=== PATIENT | male | born 1965 | race Caucasian/White ===

== ENCOUNTER 2017-01-18 11:00 | Emergency (ER) | payer SELFPAY ==
[2017-01-18 11:21] VITALS: TEMP 96.4
--- NOTE | 2017-01-18 12:12 | RAD ---
EXAM DESCRIPTION: Cervical Spine,5 Views CLINICAL HISTORY: inability to extend wrist and fingers this am COMPARISON: None FINDINGS: 6 views of the cervical spine. Cervical lordosis is maintained. Precervical soft tissues are normal in appearance. No acute fracture the cervical spine is demonstrated. No locked or perched facets. Disc heights are relatively maintained. No significant facet joint hypertrophy or uncinate spurring is demonstrated. No significant osseous foraminal crowding. C1-C2 articulations are maintained. Carotid artery calcific atherosclerotic disease is present. IMPRESSION: Negative for acute osseous pathology. Electronically signed by: Levy Simeon MD 01/18/2017 12:11 PM CDT
--- NOTE | 2017-01-18 12:13 | RAD ---
EXAM DESCRIPTION: Elbow,Right 3 Views CLINICAL HISTORY: inability to extend wrist and fingers this am COMPARISON: None FINDINGS: 3 views of the right elbow. No fracture, dislocation or aggressive bone lesion is present. Bone mineralization is normal. No erosions are seen. Prominence of the soft tissues dorsal to the olecranon. IMPRESSION: Olecranon bursitis suspected. Negative for acute osseous pathology. Electronically signed by: Levy Simeon MD 01/18/2017 12:12 PM CDT
[2017-01-18] MEDS ORDERED: predniSONE 20 MG TAB PO ONE (12:29)
--- NOTE | 2017-01-18 12:32 | ED.PDOC ---
History of Present Illness - General Chief Complaint: Lower Extremity Injury Stated Complaint: right wrist numbness/tingling Time Seen by Provider: 01/18/17 11:01 Source: patient Exam Limitations: no limitations - History of Present Illness Initial Comments: The patient is a 51-year-old male presenting to the emergency room secondary to waking up this morning and having the inability to extend his wrist or his fingers on his right hand. He reports that he did sleep on the couch last night. He had 1-2 beers last night only. He did not take any sleeping medications. He does not think that he woke up with his arm in any unusual position. Of note yesterday he did hit the lower posterior lateral aspect of his upper arm on the right on a car door yesterday evening. He does have an abrasion and obvious swelling over that area. He has tingling over the dorsal aspect of his right forearm extending down to the mid hand. Strength of the biceps triceps and brachial radialis muscles are preserved. Flexors of the wrist are preserved. Abduction and abduction of the fingers appear to be preserved. General motion of the right thumb also appears to be preserved. Sensation of the fingertips and the palmar aspect of the fingers appear to be preserved. strength and range of motion surrounding the elbow and shoulder appear to be preserved. There are no sensory changesabove the level of the elbow. Timing/Duration: 4-6 hours Severity: severe Improving Factors: nothing Worsening Factors: nothing Associated Symptoms: denies symptoms Allergies/Adverse Reactions: Allergies Alprazolam [From Xanax] Allergy (Verified 01/18/17 11:21) Carisoprodol [From Soma] Allergy (Verified 01/18/17 11:21) Home Medications: Ambulatory Orders predniSONE [Prednisone] 20 mg PO DAILY #7 tab 01/18/17 Review of Systems - Review of Systems Constitutional: States: no symptoms reported EENTM: States: no symptoms reported Respiratory: States: no symptoms reported Cardiology: States: no symptoms reported Gastrointestinal/Abdominal: States: no symptoms reported Genitourinary: States: no symptoms reported Musculoskeletal: States: see HPI Skin: States: see HPI Neurological: States: see HPI Endocrine: States: no symptoms reported Hematologic/Lymphatic: States: no symptoms reported All other Systems: No Change from Baseline Past Medical History (General) - Patient Medical History Hx Congestive Heart Failure: No Hx Hypertension: Yes Hx Diabetes: No Surgical History: appendectomy - Vaccination History Hx Influenza Vaccination: No - Social History Hx Tobacco Use: Yes Hx Substance Use: Yes - admits to smoking pot Family Medical History - Family History Father Family History: Unknown Living Status: Unknown Physical Exam - Physical Exam General Appearance: Alert, Comfortable, No apparent distress Eye Exam: bilateral normal Ears, Nose, Throat: hearing grossly normal, normal ENT inspection, normal pharynx Neck: full range of motion, supple, normal inspection Respiratory: no respiratory distress, no accessory muscle use Cardiovascular/Chest: normal peripheral pulses, no edema Peripheral Pulses: radial,right: 2+, radial,left: 2+, dorsalis pedis,right: 2+, dorsalis pedis,left: 2+ Gastrointestinal/Abdominal: non tender, soft Rectal Exam: deferred Back Exam: normal inspection, no CVA tenderness, no vertebral tenderness Extremity: normal range of motion, non-tender, no pedal edema, no calf tenderness, normal capillary refill, other - ee history of present illness 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 the source of this is most likely blunt trauma from accidental contact with a car door to his posterior lower upper arm yesterday evening. X-rays of the cervical spine and elbow were fairly reassuring. The patient will be placed on prednisone 20 mg daily for the next week. He is being placed in a wrist splint. If he is not seeing some improvement over the next 48 hours then he should get set up with a neurologist for a nerve conduction test of the right upper extremity, to localize the source of the problem and intervene surgically if it might prove beneficial. ER warnings were given. The patient does understand that this can be a permanent problem. He does need to do range of motion exercises with the wrist and the hand to prevent contractures and further weakness. 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 the source of this is most likely blunt trauma from accidental contact with a car door to his posterior lower upper arm yesterday evening. X-rays of the cervical spine and elbow were fairly reassuring. The patient will be placed on prednisone 20 mg daily for the next week. He is being placed in a wrist splint. If he is not seeing some improvement over the next 48 hours then he should get set up with a neurologist for a nerve conduction test of the right upper extremity, to localize the source of the problem and intervene surgically if it might prove beneficial. ER warnings were given. The patient does understand that this can be a permanent problem. He does need to do range of motion exercises with the wrist and the hand to prevent contractures and further weakness.
[2017-01-18 12:58] VITALS: BP 144/68; O2SAT 99
== END 2017-01-18 13:00 | disposition home or self-care (01) ==
LOC: ER 11:00
DX: M54.10 Radiculopathy, site unspecified (principal); I10 Essential (primary) hypertension; Z88.8 Allergy status to other drugs, medicaments and biological substances
CPT/HCPCS: 72050; 73080; J7512